=== PATIENT | male | born 1955 | race Caucasian/White ===

== ENCOUNTER 2023-11-04 10:04 | Outpatient (RCR) | payer MEDICARE ==
[~2023-11-04 10:04] MED LIST: BENZONATATE100 MG PO; CIPRO500 MG PO; ECOTRIN81 MG PO; IBUPROFEN200 MG PO; LASIX20 MG PO; LORATADINE10 MG PO; MINERAL OIL/PETROLAT/GLYCERI 6OZ BTL ONE; MULTIVITAMINS1 EAC6 PO; NyQuil PO; TRYPSIN/BALSAM PERU/CASTOR OIL ONE
[2023-11-04] MEDS ORDERED: MINERAL OIL/PETROLAT/GLYCERI 6OZ BTL ONE (14:44)
[2023-11-04] MEDS ORDERED: TRYPSIN/BALSAM PERU/CASTOR OIL ONE (14:44)
== END 2023-11-25 ==
LOC: WCC 10:04
PROVIDERS: ATTEND Nurse Practitioner Family
DX: I87.311 Chronic venous hypertension (idiopathic) with ulcer of right lower extremity (principal); I87.312 Chronic venous hypertension (idiopathic) with ulcer of left lower extremity; L97.818 Non-pressure chronic ulcer of other part of right lower leg with other specified severity; L97.828 Non-pressure chronic ulcer of other part of left lower leg with other specified severity; R60.0 Localized edema

== ENCOUNTER 2024-06-05 15:05 | Inpatient (IN) | payer MEDICARE ==
[~2024-06-05] VITALS: Ht 170.2 cm; Wt 200.5 kg
[~2024-06-05 15:05] MED LIST changes: -MINERAL OIL/PETROLAT/GLYCERI 6OZ BTL ONE; -TRYPSIN/BALSAM PERU/CASTOR OIL ONE
[2024-06-05 15:20] VITALS: TEMP 98.1
[2024-06-05 16:47] LABS: BASOPHILS % 0.3 % (0.0-1.0); EOSINOPHILS # (AUTO) 0.5 (0.0-0.4); EOSINOPHILS % 5.4 % (0.0-6.0); HEMATOCRIT 43.5 % (38.2-49.6); HEMOGLOBIN 13.5 g/dL (14.0-18.0); LYMPHOCYTES # (AUTO) 1.1 (1.0-3.2); LYMPHOCYTES % 11.1 % (18.0-39.1); MEAN CORPUSCULAR HEMOGLOBIN 30.8 pg (28-32); MEAN CORPUSCULAR VOLUME 99.1 fL (81-99); MONOCYTES # (AUTO) 0.5 (0.2-0.8); MONOCYTES % 5.1 % (4.4-11.3); NEUTROPHILS # (AUTO) 7.8 (2.1-6.9); NEUTROPHILS % 77.8 % (38.7-80.0); PLATELET COUNT 187 x10e3/uL (140-360); RED BLOOD COUNT 4.39 x10e6/uL (4.3-5.7); RED CELL DISTRIBUTION WIDTH 13.7 % (11.7-14.4); WHITE BLOOD COUNT 9.97 x10e3/uL (4.8-10.8)
[2024-06-05 17:06] LABS: ALBUMIN 3.3 g/dL (3.5-5.0); ALBUMIN/GLOBULIN RATIO 0.8 (0.8-2.0); BILIRUBIN,TOTAL 0.9 mg/dL (0.2-1.2); CALCIUM 9.3 mg/dL (8.4-10.2); CREATININE, SERUM 0.76 mg/dL (0.72-1.25); TOTAL PROTEIN 7.2 g/dL (6.5-8.1)
[2024-06-05 17:11] LABS: TROPONIN I 0.002 ng/mL (0-0.300)
[2024-06-05 17:23] VITALS: PULSE 95; RESP 18; O2SAT 98
[2024-06-05] MEDS: ALBUTEROL SULF 0.083% NEB SOLN 3 ML NEB NEB STA (17:24)
[2024-06-05] MEDS ORDERED: IOPAMIDOL 370 MG/ML 100 ML INFUS..BTL INJ ONE (17:30)
[2024-06-05] MEDS: METHYLPREDNISOLONE SOD SUCC 125 MG/2ML VIAL IV ONE (17:33)
[2024-06-05 17:36] VITALS: PULSE 108; RESP 20
[2024-06-05 18:28] LABS: INFLUENZAE A&B ANTIGEN (RAPID) NEGATIVE (NEGATIVE)
[2024-06-05 18:29] LABS: RESPIRATORY SYNC. VIRUS NEGATIVE (NEGATIVE)
[2024-06-05 20:00] VITALS: BP 164/93; PULSE 95; RESP 18; TEMP 97.6; O2SAT 98
[2024-06-05 20:15] VITALS: PULSE 116; RESP 18; O2SAT 97
[2024-06-05] MEDS ORDERED: HYDRALAZINE HCL 20 MG/ML VIAL IV PRN ×2 (20:15→22:30)
[2024-06-05] MEDS ORDERED: ONDANSETRON HCL INJ 2MG/ML 2ML 2 MG/ML VIAL IV PRN (20:15)
[2024-06-05] MEDS ORDERED: ACETAMINOPHEN 325 MG TAB PO PRN (20:15)
[2024-06-05 20:39] VITALS: BP 164/93; PULSE 121; RESP 21; TEMP 97.6; O2SAT 97
[2024-06-05] MEDS: BENZONATATE 100 MG CAP PO SCH (21:00)
[2024-06-05] MEDS ORDERED: CLONIDINE HCL 0.2 MG TAB PO PRN (21:00)
[2024-06-05] MEDS: GUAIFENESIN/CODEINE 5 ML LIQD PO PRN (21:58)
[2024-06-05] MEDS: LOSARTAN POTASSIUM 25 MG TAB PO SCH (22:00)
[2024-06-06] VITALS (13 sets, daily range): BP systolic 95–181; BP diastolic 64–87; PULSE 95–143; RESP 18–21; TEMP 97.2–98.3; O2SAT 95–100
[2024-06-06] MEDS: ALBUTEROL/IPRATROPIUM 3 ML NEB NEB SCH (01:33)
[2024-06-06] MEDS ORDERED: FUROSEMIDE20 MG PO (04:22)
[2024-06-06] MEDS ORDERED: ELIQUIS5 MG PO (04:32)
[2024-06-06] MEDS ORDERED: PANTOPRAZOLE SO40 MG PO ×2 (04:32→04:44)
[2024-06-06] MEDS ORDERED: LEVALBUTER0.63 MG/3 INH (04:44)
[2024-06-06] MEDS ORDERED: ALBUTEROL2.5 MG/3 M IH (04:44)
[2024-06-06] MEDS ORDERED: IPRATROPIU0.2 MG/1 M IH (04:44)
[2024-06-06] MEDS ORDERED: LOPRESSOR25 MG PO (04:44)
[2024-06-06 05:33] LABS: BASOPHILS % 0.1 % (0.0-1.0); HEMATOCRIT 38.4 % (38.2-49.6); HEMOGLOBIN 12.4 g/dL (14.0-18.0); LYMPHOCYTES # (AUTO) 0.5 (1.0-3.2); LYMPHOCYTES % 7.1 % (18.0-39.1); MEAN CORPUSCULAR HGB CONC 32.3 g/dL (31-35); MONOCYTES # (AUTO) 0.1 (0.2-0.8); NEUTROPHILS # (AUTO) 6.5 (2.1-6.9); NEUTROPHILS % 91.5 % (38.7-80.0); PLATELET COUNT 163 x10e3/uL (140-360); RED CELL DISTRIBUTION WIDTH 13.6 % (11.7-14.4); WHITE BLOOD COUNT 7.08 x10e3/uL (4.8-10.8)
[2024-06-06 05:59] LABS: ANION GAP 16.9 mmol/L (8-16); CALCIUM 9.1 mg/dL (8.4-10.2); CREATININE, SERUM 0.68 mg/dL (0.72-1.25); POTASSIUM 3.9 mmol/L (3.5-5.1)
[2024-06-06 06:16] LABS: CHOL/HDL RATIO 3.4 (3.9-4.7)
[2024-06-06] MEDS: BUDESONIDE/FORMOTEROL 160/4.5MCG INHALER INH SCH (07:46)
[2024-06-06] MEDS ORDERED: LOSARTAN POTASSIUM 25 MG TAB PO SCH (09:00)
[2024-06-06] MEDS ORDERED: METHYLPREDNISOLONE SOD SUCC 125 MG/2ML VIAL IV SCH (09:00)
[2024-06-06] MEDS: ASPIRIN 81 MG ENTERIC COATED PO SCH (09:30)
[2024-06-06] MEDS: MULTIVITAMINS/MINERALS TAB PO SCH (09:31)
[2024-06-06] MEDS: LORATADINE 10 MG TAB PO SCH (09:31)
[2024-06-06] MEDS: FUROSEMIDE 20 MG TAB PO SCH (09:31)
[2024-06-06] MEDS: PANTOPRAZOLE SOD 40 MG TABEC PO SCH (09:31)
[2024-06-06] MEDS: METHYLPREDNISOLONE SOD SUCC 125 MG/2ML VIAL IV SCH (09:43)
[2024-06-06 13:12] LABS: T4 (THYROXINE) 8.3 ug/dL (4.5-10.9)
[2024-06-06 13:13] LABS: THYROID STIMULATING HORMONE 0.63 uIU/mL (0.350-4.940)
[2024-06-06] MEDS: APIXABAN 5 MG TABLET PO SCH (16:44)
[2024-06-06] MEDS: METOPROLOL TARTRATE 25 MG TAB PO SCH (20:47)
[2024-06-06] MEDS: LOSARTAN POTASSIUM 25 MG TAB PO SCH (20:48)
[2024-06-06] MEDS ORDERED: METOPROLOL TARTRATE 25 MG TAB PO SCH ×2 (21:00)
[2024-06-07] VITALS (14 sets, daily range): BP systolic 144–173; BP diastolic 75–94; PULSE 83–101; RESP 18–21; TEMP 97.3–99.7; O2SAT 95–100
[2024-06-07] MEDS ORDERED: LOSARTAN POTASSIUM 25 MG TAB PO SCH (09:00)
[2024-06-08] VITALS (11 sets, daily range): BP systolic 139–173; BP diastolic 76–90; PULSE 79–91; RESP 18–20; TEMP 97.4–97.9; O2SAT 92–100
[2024-06-08 06:00] LABS: HEMATOCRIT 38.3 % (38.2-49.6); HEMOGLOBIN 12.3 g/dL (14.0-18.0); LYMPHOCYTES # (AUTO) 0.5 (1.0-3.2); LYMPHOCYTES % 5.4 % (18.0-39.1); MEAN CORPUSCULAR HEMOGLOBIN 30.8 pg (28-32); MEAN CORPUSCULAR HGB CONC 32.1 g/dL (31-35); MEAN CORPUSCULAR VOLUME 95.8 fL (81-99); MONOCYTES # (AUTO) 0.2 (0.2-0.8); MONOCYTES % 2.3 % (4.4-11.3); NEUTROPHILS % 91.7 % (38.7-80.0); PLATELET COUNT 173 x10e3/uL (140-360); RED CELL DISTRIBUTION WIDTH 13.9 % (11.7-14.4); WHITE BLOOD COUNT 8.74 x10e3/uL (4.8-10.8)
[2024-06-08 06:31] LABS: ANION GAP 12.6 mmol/L (8-16); CALCIUM 9.2 mg/dL (8.4-10.2); CREATININE, SERUM 0.82 mg/dL (0.72-1.25); POTASSIUM 3.6 mmol/L (3.5-5.1)
[2024-06-08] MEDS: METOPROLOL SUCCINATE 50 MG TAB XL PO SCH (12:15)
[2024-06-09] VITALS (10 sets, daily range): BP systolic 153–176; BP diastolic 79–97; PULSE 78–92; RESP 17–24; TEMP 97.7–98.5; O2SAT 93–99
[2024-06-09] MEDS ORDERED: TOPROL XL50 MG PO (10:56)
[2024-06-09] MEDS ORDERED: PREDNISONE20 MG PO (10:56)
[2024-06-10] MEDS ORDERED: PREDNISONE 20 MG TAB PO SCH (09:00)
== END 2024-06-09 14:24 | disposition home or self-care (01) | DRG 202 ==
LOC: ER 15:23 → ERHOLD 17:52 → MED/SURG2 18:06 → OBSVTOIN 06-07 11:53
PROVIDERS: ADMIT Internal Medicine; ATTEND Internal Medicine
DX: J45.901 Unspecified asthma with (acute) exacerbation (principal); Z68.44 Body mass index [BMI] 60.0-69.9, adult; I10 Essential (primary) hypertension; I48.0 Paroxysmal atrial fibrillation; Z79.01 Long term (current) use of anticoagulants; E66.01 Morbid (severe) obesity due to excess calories; Z71.3 Dietary counseling and surveillance; I89.0 Lymphedema, not elsewhere classified; R00.0 Tachycardia, unspecified; Z11.52 Encounter for screening for COVID-19; Z71.81 Spiritual or religious counseling; Z79.899 Other long term (current) drug therapy
CPT/HCPCS: 0223U; 36415; 71045; 71260; 80048; 80053; 80061; 83036; 83880; 84436; 84443; 84484; 85025; 87400; 87420; 93005; 93306; 94640; 94664; 94799; 99284; G0378; J2919; J7050; Q9967

== ENCOUNTER 2024-08-22 14:53 | Inpatient (IN) | payer MEDICARE ==
[2024-08-22] VITALS (8 sets, daily range): PULSE 75–122; RESP 17–24; TEMP 98; O2SAT 96–98
[~2024-08-22] VITALS: Ht 170.2 cm; Wt 138.4 kg
[~2024-08-22 14:53] MED LIST changes: +ALBUTEROL2.5 MG/3 M IH; +ELIQUIS5 MG PO; +FUROSEMIDE20 MG PO; +IPRATROPIU0.2 MG/1 M IH; +LEVALBUTER0.63 MG/3 INH; +LOPRESSOR25 MG PO; +PANTOPRAZOLE SO40 MG PO; +PREDNISONE20 MG PO; +TOPROL XL50 MG PO
[2024-08-22 15:26] LABS: BASOPHILS % 0.5 % (0.0-1.0); EOSINOPHILS # (AUTO) 0.5 (0.0-0.4); EOSINOPHILS % 5.8 % (0.0-6.0); HEMATOCRIT 43.7 % (38.2-49.6); HEMOGLOBIN 13.4 g/dL (14.0-18.0); LYMPHOCYTES # (AUTO) 1.5 (1.0-3.2); LYMPHOCYTES % 18.5 % (18.0-39.1); MEAN CORPUSCULAR HEMOGLOBIN 30.7 pg (28-32); MEAN CORPUSCULAR HGB CONC 30.7 g/dL (31-35); MEAN CORPUSCULAR VOLUME 100.2 fL (81-99); MONOCYTES # (AUTO) 0.7 (0.2-0.8); MONOCYTES % 8.1 % (4.4-11.3); NEUTROPHILS # (AUTO) 5.5 (2.1-6.9); NEUTROPHILS % 66.9 % (38.7-80.0); PLATELET COUNT 173 x10e3/uL (140-360); RED BLOOD COUNT 4.36 x10e6/uL (4.3-5.7); RED CELL DISTRIBUTION WIDTH 12.7 % (11.7-14.4); WHITE BLOOD COUNT 8.26 x10e3/uL (4.8-10.8)
[2024-08-22] MEDS: SODIUM CHLORIDE 0.9% 1000ML 1,000 ML IV SCH (15:32)
[2024-08-22] MEDS: ALBUTEROL SULF 0.083% NEB SOLN 3 ML NEB NEB STA (15:37)
[2024-08-22 15:45] LABS: ALBUMIN 3.4 g/dL (3.5-5.0); ANION GAP 15.7 mmol/L (8-16); BILIRUBIN,TOTAL 0.9 mg/dL (0.2-1.2); CALCIUM 9.2 mg/dL (8.4-10.2); CREATININE, SERUM 0.85 mg/dL (0.72-1.25); POTASSIUM 3.7 mmol/L (3.5-5.1); TOTAL PROTEIN 6.8 g/dL (6.5-8.1)
[2024-08-22 15:59] LABS: CORONAVIRUS COVID-19 AG NEGATIVE (NEGATIVE); INFLUENZA A AG NEGATIVE (NEGATIVE); INFLUENZA B AG NEGATIVE (NEGATIVE)
[2024-08-22] MEDS ORDERED: IOPAMIDOL 370 MG/ML 100 ML INFUS..BTL INJ ONE (17:00)
[2024-08-22] MEDS ORDERED: LEVALBUTEROL HCL SOLN NEBU 0.63 MG/3 ML NEB INH PRN (17:15)
[2024-08-22] MEDS ORDERED: LABETALOL HCL 5 MG/ML 20ML VIAL IV STA (17:15)
[2024-08-22] MEDS: DILTIAZEM HCL 5 MG/ML 5 ML VIAL IV ONE (17:31)
[2024-08-22] MEDS ORDERED: METHYLPREDNISOLONE SOD SUCC 125 MG/2ML VIAL IV SCH (18:15)
[2024-08-22] MEDS: METOPROLOL SUCCINATE 50 MG TAB XL PO SCH (19:20)
[2024-08-22] MEDS ORDERED: VENTOLIN HFA18 GM INH (19:33)
[2024-08-22] MEDS ORDERED: TRIAMCINOLONE A15 G1 TOP (19:33)
[2024-08-22] MEDS: LEVALBUTEROL HCL SOLN NEBU 0.63 MG/3 ML NEB INH SCH (19:56)
[2024-08-22] MEDS: BENZONATATE 100 MG CAP PO SCH (21:15)
[2024-08-22] MEDS: METHYLPREDNISOLONE SOD SUCC 125 MG/2ML VIAL IV SCH (21:15)
[2024-08-23] VITALS (27 sets, daily range): BP systolic 153–178; BP diastolic 76–93; PULSE 76–93; RESP 12–27; TEMP 97.6–98.2; O2SAT 93–99
[2024-08-23 06:24] LABS: BASOPHILS % 0.2 % (0.0-1.0); HEMATOCRIT 42.7 % (38.2-49.6); LYMPHOCYTES # (AUTO) 0.6 (1.0-3.2); LYMPHOCYTES % 9.6 % (18.0-39.1); MEAN CORPUSCULAR HEMOGLOBIN 30.8 pg (28-32); MEAN CORPUSCULAR HGB CONC 32.8 g/dL (31-35); MEAN CORPUSCULAR VOLUME 93.8 fL (81-99); MONOCYTES # (AUTO) 0.1 (0.2-0.8); NEUTROPHILS # (AUTO) 5.5 (2.1-6.9); NEUTROPHILS % 88.9 % (38.7-80.0); PLATELET COUNT 172 x10e3/uL (140-360); RED BLOOD COUNT 4.55 x10e6/uL (4.3-5.7); WHITE BLOOD COUNT 6.15 x10e3/uL (4.8-10.8)
[2024-08-23 06:54] LABS: ANION GAP 19.1 mmol/L (8-16); CALCIUM 9.1 mg/dL (8.4-10.2); CREATININE, SERUM 0.73 mg/dL (0.72-1.25); POTASSIUM 4.1 mmol/L (3.5-5.1)
[2024-08-23] MEDS ORDERED: METOPROLOL SUCCINATE 50 MG TAB XL PO SCH (09:00)
[2024-08-23] MEDS: APIXABAN 5 MG TABLET PO SCH (09:30)
[2024-08-23] MEDS: PANTOPRAZOLE SOD 40 MG TABEC PO SCH (09:31)
[2024-08-23] MEDS: FUROSEMIDE 40 MG TAB PO SCH (09:31)
[2024-08-23] MEDS: VALSARTAN 80 MG TAB PO SCH (09:56)
[2024-08-23] MEDS ORDERED: ENOXAPARIN SOD INJ 40 MG/0.4 ML SYR SC SCH (18:00)
[2024-08-24] VITALS (29 sets, daily range): BP systolic 128–200; BP diastolic 69–121; PULSE 73–99; RESP 13–25; TEMP 97.7–98.5; O2SAT 88–98
[2024-08-24] MEDS: LABETALOL HCL 5 MG/ML 20ML VIAL IV PRN (01:27)
[2024-08-24 07:06] LABS: HEMATOCRIT 44.1 % (38.2-49.6); HEMOGLOBIN 13.8 g/dL (14.0-18.0); LYMPHOCYTES # (AUTO) 0.6 (1.0-3.2); LYMPHOCYTES % 4.7 % (18.0-39.1); MEAN CORPUSCULAR HGB CONC 31.3 g/dL (31-35); MEAN CORPUSCULAR VOLUME 99.1 fL (81-99); MONOCYTES # (AUTO) 0.3 (0.2-0.8); MONOCYTES % 2.5 % (4.4-11.3); NEUTROPHILS # (AUTO) 11.4 (2.1-6.9); NEUTROPHILS % 92.4 % (38.7-80.0); PLATELET COUNT 157 x10e3/uL (140-360); RED BLOOD COUNT 4.45 x10e6/uL (4.3-5.7); RED CELL DISTRIBUTION WIDTH 12.4 % (11.7-14.4); WHITE BLOOD COUNT 12.38 x10e3/uL (4.8-10.8)
[2024-08-24 07:31] LABS: ANION GAP 16.8 mmol/L (8-16); CALCIUM 9.5 mg/dL (8.4-10.2); CREATININE, SERUM 0.82 mg/dL (0.72-1.25); POTASSIUM 3.8 mmol/L (3.5-5.1)
[2024-08-24] MEDS: VALSARTAN 80 MG TAB PO SCH (08:57)
[2024-08-24] MEDS: FUROSEMIDE INJ 10 MG/ML 4 ML VIAL IV SCH (08:58)
[2024-08-25] VITALS (19 sets, daily range): BP systolic 125–154; BP diastolic 68–94; PULSE 52–92; RESP 15–27; TEMP 97.5–98.2; O2SAT 91–99
[2024-08-25 07:07] LABS: HEMATOCRIT 44.1 % (38.2-49.6); HEMOGLOBIN 13.7 g/dL (14.0-18.0); LYMPHOCYTES # (AUTO) 0.7 (1.0-3.2); LYMPHOCYTES % 5.4 % (18.0-39.1); MEAN CORPUSCULAR HEMOGLOBIN 30.6 pg (28-32); MEAN CORPUSCULAR HGB CONC 31.1 g/dL (31-35); MEAN CORPUSCULAR VOLUME 98.4 fL (81-99); MONOCYTES # (AUTO) 0.8 (0.2-0.8); MONOCYTES % 6.7 % (4.4-11.3); NEUTROPHILS # (AUTO) 10.6 (2.1-6.9); NEUTROPHILS % 87.7 % (38.7-80.0); PLATELET COUNT 157 x10e3/uL (140-360); RED BLOOD COUNT 4.48 x10e6/uL (4.3-5.7); RED CELL DISTRIBUTION WIDTH 12.6 % (11.7-14.4); WHITE BLOOD COUNT 12.13 x10e3/uL (4.8-10.8)
[2024-08-25 07:43] LABS: ALBUMIN 3.1 g/dL (3.5-5.0); ALBUMIN/GLOBULIN RATIO 1.1 (0.8-2.0); ANION GAP 15.3 mmol/L (8-16); BILIRUBIN,TOTAL 0.6 mg/dL (0.2-1.2); CALCIUM 9.4 mg/dL (8.4-10.2); CREATININE, SERUM 0.76 mg/dL (0.72-1.25)
[2024-08-25 07:50] LABS: POTASSIUM 3.3 mmol/L (3.5-5.1)
[2024-08-25] MEDS: METHYLPREDNISOLONE SOD SUCC 125 MG/2ML VIAL IV SCH (10:46)
[2024-08-26] VITALS (20 sets, daily range): BP systolic 125–158; BP diastolic 66–86; PULSE 56–86; RESP 15–22; TEMP 98–98.4; O2SAT 90–98
[2024-08-26 06:55] LABS: BASOPHILS % 0.1 % (0.0-1.0); EOSINOPHILS % 0.4 % (0.0-6.0); HEMATOCRIT 44.9 % (38.2-49.6); LYMPHOCYTES # (AUTO) 0.9 (1.0-3.2); LYMPHOCYTES % 11.8 % (18.0-39.1); MEAN CORPUSCULAR HEMOGLOBIN 30.7 pg (28-32); MEAN CORPUSCULAR HGB CONC 31.2 g/dL (31-35); MEAN CORPUSCULAR VOLUME 98.5 fL (81-99); MONOCYTES # (AUTO) 0.7 (0.2-0.8); MONOCYTES % 8.9 % (4.4-11.3); NEUTROPHILS # (AUTO) 6.2 (2.1-6.9); NEUTROPHILS % 78.3 % (38.7-80.0); PLATELET COUNT 148 x10e3/uL (140-360); RED BLOOD COUNT 4.56 x10e6/uL (4.3-5.7); RED CELL DISTRIBUTION WIDTH 12.3 % (11.7-14.4); WHITE BLOOD COUNT 7.97 x10e3/uL (4.8-10.8)
[2024-08-26 07:30] LABS: ALBUMIN 3.1 g/dL (3.5-5.0); ALBUMIN/GLOBULIN RATIO 1.1 (0.8-2.0); ANION GAP 14.1 mmol/L (8-16); BILIRUBIN,TOTAL 0.7 mg/dL (0.2-1.2); CALCIUM 8.8 mg/dL (8.4-10.2); CREATININE, SERUM 0.75 mg/dL (0.72-1.25); TOTAL PROTEIN 5.9 g/dL (6.5-8.1)
[2024-08-26 07:33] LABS: POTASSIUM 3.1 mmol/L (3.5-5.1)
[2024-08-26] MEDS ORDERED: HYDRALAZINE HCL 20 MG/ML VIAL IV PRN (08:30)
[2024-08-26] MEDS ORDERED: TOPROL XL50 MG PO (12:36)
[2024-08-26] MEDS ORDERED: DIOVAN80 MG PO (12:36)
[2024-08-26] MEDS ORDERED: PREDNISONE20 MG PO (12:36)
[2024-08-26] MEDS: POTASSIUM CHLORIDE 10MEQ EA PO ONE (14:08)
== END 2024-08-26 15:00 | disposition home or self-care (01) | DRG 190 ==
LOC: ER 15:11 → ERHOLD 16:46 → ICU 22:01 → OBSVTOIN 22:48 → INTOOBSV 22:48 → OBSVTOIN 08-23 10:00
PROVIDERS: ADMIT Internal Medicine; ATTEND Internal Medicine
DX: J44.1 Chronic obstructive pulmonary disease with (acute) exacerbation (principal); I50.33 Acute on chronic diastolic (congestive) heart failure; J45.901 Unspecified asthma with (acute) exacerbation; Z68.42 Body mass index [BMI] 45.0-49.9, adult; J96.10 Chronic respiratory failure, unspecified whether with hypoxia or hypercapnia; J44.0 Chronic obstructive pulmonary disease with (acute) lower respiratory infection; I11.0 Hypertensive heart disease with heart failure; E66.01 Morbid (severe) obesity due to excess calories; I48.0 Paroxysmal atrial fibrillation; R00.0 Tachycardia, unspecified; R60.0 Localized edema; Z11.52 Encounter for screening for COVID-19; Z79.01 Long term (current) use of anticoagulants; Z79.52 Long term (current) use of systemic steroids; I89.0 Lymphedema, not elsewhere classified
CPT/HCPCS: 36415; 71045; 71260; 80048; 80053; 83605; 83880; 85025; 87040; 93005; 94640; 94660; 94799; 99252; 99284; G0378; J1940; J2919; J7030; J7050; Q9967

== ENCOUNTER 2024-10-11 18:11 | Inpatient (IN) | payer MEDICARE ==
[~2024-10-11] VITALS: Ht 170.2 cm; Wt 138.3 kg
[~2024-10-11 18:11] MED LIST changes: +DIOVAN80 MG PO; +TRIAMCINOLONE A15 G1 TOP; +VENTOLIN HFA18 GM INH
[2024-10-11] MEDS ORDERED: SODIUM CHLORIDE FLUSH 10 ML SYR IV PRN (18:45)
[2024-10-11] MEDS ORDERED: SODIUM CHLORIDE 0.9% 500ML 500 ML IV ONE (19:00)
[2024-10-11 19:02] LABS: BASOPHILS % 0.5 % (0.0-1.0); EOSINOPHILS # (AUTO) 0.4 (0.0-0.4); EOSINOPHILS % 5.4 % (0.0-6.0); HEMATOCRIT 37.1 % (38.2-49.6); HEMOGLOBIN 12.1 g/dL (14.0-18.0); LYMPHOCYTES % 12.6 % (18.0-39.1); MEAN CORPUSCULAR HEMOGLOBIN 30.6 pg (28-32); MEAN CORPUSCULAR HGB CONC 32.6 g/dL (31-35); MEAN CORPUSCULAR VOLUME 93.7 fL (81-99); MONOCYTES # (AUTO) 0.4 (0.2-0.8); MONOCYTES % 5.4 % (4.4-11.3); NEUTROPHILS # (AUTO) 6.1 (2.1-6.9); NEUTROPHILS % 75.9 % (38.7-80.0); PLATELET COUNT 155 x10e3/uL (140-360); RED BLOOD COUNT 3.96 x10e6/uL (4.3-5.7); RED CELL DISTRIBUTION WIDTH 13.9 % (11.7-14.4); WHITE BLOOD COUNT 8.08 x10e3/uL (4.8-10.8)
[2024-10-11] MEDS ORDERED: SODIUM CHLORIDE 0.9% 1000ML 1,000 ML ONE (19:06)
[2024-10-11 19:16] LABS: ALBUMIN/GLOBULIN RATIO 0.9 (0.8-2.0); ANION GAP 14.4 mmol/L (8-16); CALCIUM 8.5 mg/dL (8.4-10.2); CREATININE, SERUM 0.76 mg/dL (0.72-1.25); TOTAL PROTEIN 6.3 g/dL (6.5-8.1)
[2024-10-11] MEDS: SODIUM CHLORIDE 0.9% 1000ML 1,000 ML IV ONE (19:16)
[2024-10-11] MEDS: LEVOFLOXACIN 750MG/D5W 150ML 150 ML IV SCH (19:16)
[2024-10-11 19:18] LABS: POTASSIUM 3.4 mmol/L (3.5-5.1)
[2024-10-11 19:19] LABS: CORONAVIRUS COVID-19 AG NEGATIVE (NEGATIVE); INFLUENZA A AG NEGATIVE (NEGATIVE); INFLUENZA B AG NEGATIVE (NEGATIVE)
[2024-10-11 19:20] VITALS: RESP 18
[2024-10-11 19:22] LABS: TROPONIN I 0.002 ng/mL (0-0.300)
[2024-10-11 19:41] LABS: BILIRUBIN,URINE NEGATIVE (NEGATIVE); CLARITY,URINE CLEAR (CLEAR); COLOR,URINE YELLOW (YELLOW); GLUCOSE, URINE NEGATIVE (NEGATIVE); KETONES,URINE NEGATIVE (NEGATIVE); LEUKOCYTE ESTERASE ,URINE NEGATIVE (NEGATIVE); NITRITE,URINE NEGATIVE (NEGATIVE); PH,URINE 7 (5 - 7); PROTEIN,URINE DIPSTICK NEGATIVE (NEGATIVE); URINE UROBILINOGEN 0.2 mg/dL (0.2 - 1)
[2024-10-11 19:42] LABS: RBC,URINE 0-5 /HPF (0-5); WBC,URINE (MAN) 0-5 /HPF (0-5)
[2024-10-11 19:43] LABS: BACTERIA,URINE FEW /HPF; EPITHELIAL CELLS,URINE MODERATE /LPF
[2024-10-11] MEDS: MAGNESIUM SULFATE 2GM/50ML 50 ML IV ONE (20:45)
[2024-10-11] MEDS ORDERED: SODIUM CHLORIDE FLUSH 10 ML SYR INJ PRN (21:00)
[2024-10-11] MEDS ORDERED: ONDANSETRON HCL INJ 2MG/ML 2ML 2 MG/ML VIAL IV PRN (21:00)
[2024-10-11 21:45] VITALS: PULSE 93; TEMP 97.9
[2024-10-11] MEDS ORDERED: METOPROLOL SUCC50 MG PO (22:39)
[2024-10-11] MEDS ORDERED: BENZONATATE200 MG PO (22:42)
[2024-10-11 22:51] VITALS: BP 171/94; PULSE 110; RESP 22; TEMP 98.1; O2SAT 98
[2024-10-11 23:04] VITALS: BP 171/94; PULSE 110; RESP 22; TEMP 98.1; O2SAT 98
[2024-10-11 23:41] VITALS: PULSE 93; RESP 20; O2SAT 98
[2024-10-11] MEDS: ALBUTEROL/IPRATROPIUM 3 ML NEB NEB SCH (23:41)
[2024-10-12] VITALS (10 sets, daily range): BP systolic 118–124; BP diastolic 59–81; PULSE 93–120; RESP 20–23; TEMP 98–98.2; O2SAT 95–99
[2024-10-12] MEDS: ACETAMINOPHEN 325 MG TAB PO PRN (00:37)
[2024-10-12 05:35] LABS: BASOPHILS % 0.1 % (0.0-1.0); HEMATOCRIT 38.9 % (38.2-49.6); HEMOGLOBIN 12.6 g/dL (14.0-18.0); LYMPHOCYTES # (AUTO) 0.6 (1.0-3.2); LYMPHOCYTES % 8.3 % (18.0-39.1); MEAN CORPUSCULAR HEMOGLOBIN 30.1 pg (28-32); MEAN CORPUSCULAR HGB CONC 32.4 g/dL (31-35); MEAN CORPUSCULAR VOLUME 93.1 fL (81-99); MONOCYTES # (AUTO) 0.1 (0.2-0.8); MONOCYTES % 0.9 % (4.4-11.3); NEUTROPHILS # (AUTO) 6.9 (2.1-6.9); NEUTROPHILS % 90.4 % (38.7-80.0); PLATELET COUNT 174 x10e3/uL (140-360); RED BLOOD COUNT 4.18 x10e6/uL (4.3-5.7); RED CELL DISTRIBUTION WIDTH 13.6 % (11.7-14.4); WHITE BLOOD COUNT 7.61 x10e3/uL (4.8-10.8)
[2024-10-12 06:10] LABS: ALBUMIN 2.8 g/dL (3.5-5.0); ALBUMIN/GLOBULIN RATIO 0.8 (0.8-2.0); ANION GAP 15.1 mmol/L (8-16); BILIRUBIN,TOTAL 0.6 mg/dL (0.2-1.2); CALCIUM 8.5 mg/dL (8.4-10.2); CREATININE, SERUM 0.68 mg/dL (0.72-1.25); POTASSIUM 4.1 mmol/L (3.5-5.1); TOTAL PROTEIN 6.1 g/dL (6.5-8.1)
[2024-10-12] MEDS ORDERED: BENZONATATE 100 MG CAP PO PRN (12:30)
[2024-10-12] MEDS: METHYLPREDNISOLONE SOD SUCC 125 MG/2ML VIAL IV SCH (15:31)
[2024-10-12] MEDS: APIXABAN 5 MG TABLET PO SCH (16:27)
[2024-10-12] MEDS: BUDESONIDE/FORMOTEROL 160/4.5MCG INHALER INH SCH (20:53)
[2024-10-13] VITALS (12 sets, daily range): BP systolic 140–158; BP diastolic 70–81; PULSE 82–123; RESP 18–23; TEMP 98–98.2; O2SAT 95–100
[2024-10-13] MEDS ORDERED: METOPROLOL SUCCINATE 50 MG TAB XL PO SCH (09:00)
[2024-10-13] MEDS ORDERED: FUROSEMIDE 20 MG TAB PO SCH (09:00)
[2024-10-13] MEDS: PANTOPRAZOLE SOD 40 MG TABEC PO SCH (09:40)
[2024-10-13] MEDS: FUROSEMIDE 20 MG TAB PO SCH (09:40)
[2024-10-13] MEDS: METOPROLOL SUCCINATE 50 MG TAB XL PO SCH (09:44)
[2024-10-13] MEDS ORDERED: ONDANSETRON HCL 4 MG ORAL DISINTEGRATING TAB PO PRN (14:15)
[2024-10-14] VITALS (12 sets, daily range): BP systolic 141–154; BP diastolic 72–80; PULSE 80–98; RESP 18–21; TEMP 97.4–98.4; O2SAT 94–100
[2024-10-14] MEDS: ASCORBIC ACID 500 MG TAB PO SCH (09:07)
[2024-10-14] MEDS: TRIMETHOPRIM/SULFAMETHOXAZOLE 160-800 MG TAB PO SCH (09:07)
[2024-10-14] MEDS: AZITHROMYCIN 250 MG TAB PO SCH (11:58)
[2024-10-15] VITALS (11 sets, daily range): BP systolic 142–143; BP diastolic 67–80; PULSE 78–96; RESP 17–20; TEMP 97.3–97.9; O2SAT 94–98
[2024-10-16] VITALS (12 sets, daily range): BP systolic 128–146; BP diastolic 61–86; PULSE 76–91; RESP 17–20; TEMP 97.9–98.1; O2SAT 91–98
[2024-10-16] MEDS: METHYLPREDNISOLONE SOD SUCC 125 MG/2ML VIAL IV SCH (20:54)
[2024-10-17] VITALS (12 sets, daily range): BP systolic 126–148; BP diastolic 67–82; PULSE 75–87; RESP 18–20; TEMP 97.7–97.9; O2SAT 95–99
[2024-10-17 07:57] LABS: BASOPHILS % 0.1 % (0.0-1.0); HEMATOCRIT 38.7 % (38.2-49.6); LYMPHOCYTES # (AUTO) 0.7 (1.0-3.2); LYMPHOCYTES % 8.2 % (18.0-39.1); MEAN CORPUSCULAR HEMOGLOBIN 30.7 pg (28-32); MEAN CORPUSCULAR HGB CONC 33.6 g/dL (31-35); MEAN CORPUSCULAR VOLUME 91.3 fL (81-99); MONOCYTES # (AUTO) 0.6 (0.2-0.8); MONOCYTES % 6.5 % (4.4-11.3); NEUTROPHILS # (AUTO) 7.5 (2.1-6.9); NEUTROPHILS % 84.7 % (38.7-80.0); PLATELET COUNT 135 x10e3/uL (140-360); RED BLOOD COUNT 4.24 x10e6/uL (4.3-5.7); WHITE BLOOD COUNT 8.83 x10e3/uL (4.8-10.8)
[2024-10-17 08:00] LABS: ALBUMIN/GLOBULIN RATIO 1.1 (0.8-2.0); ANION GAP 13.2 mmol/L (8-16); BILIRUBIN,TOTAL 0.6 mg/dL (0.2-1.2); CALCIUM 8.4 mg/dL (8.4-10.2); CREATININE, SERUM 0.81 mg/dL (0.72-1.25); POTASSIUM 4.2 mmol/L (3.5-5.1); TOTAL PROTEIN 5.8 g/dL (6.5-8.1)
[2024-10-18] VITALS (10 sets, daily range): BP systolic 126–150; BP diastolic 68–81; PULSE 72–88; RESP 18–20; TEMP 97.7–98.4; O2SAT 95–98
[2024-10-18 05:33] LABS: BASOPHILS % 0.1 % (0.0-1.0); EOSINOPHILS % 0.3 % (0.0-6.0); HEMATOCRIT 44.1 % (38.2-49.6); HEMOGLOBIN 14.6 g/dL (14.0-18.0); LYMPHOCYTES # (AUTO) 0.8 (1.0-3.2); LYMPHOCYTES % 6.8 % (18.0-39.1); MEAN CORPUSCULAR HEMOGLOBIN 30.7 pg (28-32); MEAN CORPUSCULAR HGB CONC 33.1 g/dL (31-35); MEAN CORPUSCULAR VOLUME 92.6 fL (81-99); MONOCYTES # (AUTO) 0.6 (0.2-0.8); NEUTROPHILS # (AUTO) 10.3 (2.1-6.9); NEUTROPHILS % 87.3 % (38.7-80.0); PLATELET COUNT 152 x10e3/uL (140-360); RED BLOOD COUNT 4.76 x10e6/uL (4.3-5.7); RED CELL DISTRIBUTION WIDTH 13.9 % (11.7-14.4); WHITE BLOOD COUNT 11.83 x10e3/uL (4.8-10.8)
[2024-10-18 06:09] LABS: ALBUMIN 3.3 g/dL (3.5-5.0); ALBUMIN/GLOBULIN RATIO 1.1 (0.8-2.0); ANION GAP 14.2 mmol/L (8-16); BILIRUBIN,TOTAL 0.8 mg/dL (0.2-1.2); CALCIUM 8.6 mg/dL (8.4-10.2); CREATININE, SERUM 0.87 mg/dL (0.72-1.25); POTASSIUM 4.2 mmol/L (3.5-5.1); TOTAL PROTEIN 6.3 g/dL (6.5-8.1)
[2024-10-18] MEDS ORDERED: FUROSEMIDE20 MG PO (15:49)
[2024-10-18] MEDS ORDERED: SYMBICORT 16010.2 GM INH (15:49)
[2024-10-18] MEDS ORDERED: ONDANSETRON ODT4 MG PO (15:49)
[2024-10-18] MEDS ORDERED: PREDNISONE5 MG PO (15:49)
[2024-10-18] MEDS ORDERED: ACETAMINOPHEN325 M1 PO (15:49)
[2024-10-18] MEDS ORDERED: ASCORBIC ACID500 MG PO (15:49)
[2024-10-18] MEDS ORDERED: POTASSIUM CHLOR8 MEQ PO (15:49)
[2024-10-19] MEDS ORDERED: PREDNISONE 20 MG TAB PO SCH (09:00)
== END 2024-10-18 16:45 | disposition home or self-care (01) | DRG 202 ==
LOC: ER 18:14 → ERHOLD 21:01 → MED/SURG 22:31 → OBSVTOIN 10-13 08:15 → MED/SURG2 10-17 19:42
PROVIDERS: ADMIT Internal Medicine; ATTEND Internal Medicine
DX: J45.901 Unspecified asthma with (acute) exacerbation (principal); I11.0 Hypertensive heart disease with heart failure; I50.23 Acute on chronic systolic (congestive) heart failure; J96.01 Acute respiratory failure with hypoxia; N39.0 Urinary tract infection, site not specified; E66.01 Morbid (severe) obesity due to excess calories; Z68.42 Body mass index [BMI] 45.0-49.9, adult; I83.021 Varicose veins of left lower extremity with ulcer of thigh; Z99.81 Dependence on supplemental oxygen; I48.0 Paroxysmal atrial fibrillation; I89.0 Lymphedema, not elsewhere classified; J44.9 Chronic obstructive pulmonary disease, unspecified; Z11.52 Encounter for screening for COVID-19; Z79.01 Long term (current) use of anticoagulants; Z79.82 Long term (current) use of aspirin
CPT/HCPCS: 36415; 71045; 80053; 81001; 83605; 83735; 83880; 84484; 85025; 87040; 87071; 87086; 87186; 87205; 93005; 94640; 94664; 94760; 94799; 99252; 99284; G0378; J0696; J2470; J2919; J3475; J7030; J7040; J7050